=== PATIENT | female | born 1965 | race Caucasian/White ===

== ENCOUNTER 2019-06-20 11:00 | Day surgery (SDC) | payer BC, OTHER ==
[2019-06-16 15:51] VITALS: BMI 27.8
[2019-06-20] MEDS ORDERED: MIDAZOLAM HCL 2 MG/2 ML SINGLE DOSE VIAL ONE ×2 (12:40→12:58)
[2019-06-20] MEDS ORDERED: ONDANSETRON 4 MG/2 ML VIAL IVPUSH PRN (13:30)
[2019-06-20] MEDS ORDERED: ACETAMINOPHEN 325 MG TABLET (FP) PO PRN (13:30)
[2019-06-20] MEDS ORDERED: LACTATED RINGERS SOLUTION 1,000 ML IV SCH (13:30)
--- NOTE | 2019-06-20 13:40 | OP ---
Operative Note - Note: Operative Date: 06/20/19 Pre-Operative Diagnosis: lEFT RENAL STONE Operation: left ESWL Findings: 6 mm lower pole left renal stone Post-Operative Diagnosis: Same as Pre-op Surgeon: Jose Miguel Saucedo Anesthesia: Fractional Estimated Blood Loss (mls): 0 Operative Report Dictated: Yes
[2019-06-20 16:36] VITALS: BP 110/63; PULSE 66; TEMP 98.1
--- NOTE | 2019-06-21 08:47 | OP ---
DATE OF OPERATION: 06/20/2019 PREOPERATIVE DIAGNOSIS: Left renal stone. POSTOPERATIVE DIAGNOSIS: Left renal stone. PROCEDURE PERFORMED: Left extracorporeal shock wave lithotripsy. SURGEON: Jose Miguel Kitchen MD ANESTHESIA: Fractional. DESCRIPTION OF PROCEDURE: The patient was brought to the operating room and placed in the supine position on the operating room table. Ultrasonography and fluoroscopy were performed. A 6-mm left lower pole stone was identified. At this point fractional anesthesia and antibiotics were administered. Shock wave lithotripsy was then performed Excellent fragmentation was noted under real time ultrasonography and fluoroscopy. The patient tolerated the procedure very well. DISPOSITION: The patient was sent to the recovery room. Maryann [id number]
== END 2019-06-20 16:25 | disposition home or self-care (01) ==
LOC: JASU-SURG 11:00 → JOR 11:00 → JASU-SURG 16:25
PROVIDERS: ATTEND Urology
PROC: 0TF4XZZ Fragmentation in Left Kidney Pelvis, External Approach (ICD-10-PCS; principal; 2019-06-20 13:15)
DX: N20.0 Calculus of kidney (principal)
CPT/HCPCS: 94760